=== PATIENT | female | born 1990 | race American Indian/Alaskan Native ===

== ENCOUNTER → 2020-04-27 | Emergency (ER) | payer OTHER ==
[~2020-04-27] VITALS: Ht 157.5 cm; Wt 77.1 kg
[~2020-04-27] MED LIST: LASIX20 MG; LEVOCARNITINE
== END | disposition left against medical advice (07) ==
LOC: ER 15:28
DX: Z53.21 Procedure and treatment not carried out due to patient leaving prior to being seen by health care provider (principal)